=== PATIENT | male | born 1940 | race African-American/Black ===

== ENCOUNTER 2023-01-27 11:35 | Emergency (ER) | payer OTHER ==
[2023-01-27 11:43] VITALS: BP 113/59; PULSE 67; RESP 20; TEMP 97.6; BMI 26.2
[2023-01-27] MEDS ORDERED: diphenhydrAMINE HCL 25 MG CAPSULE (FP) PO ONE ×2 (13:06→13:07)
[2023-01-27] MEDS ORDERED: predniSONE 20 MG TABLET (UD) PO ONE (13:06)
[2023-01-27] MEDS ORDERED: predniSONE 20 MG TABLET (UD) ONE (13:07)
== END 2023-01-27 13:33 | disposition home or self-care (01) ==
LOC: JERFT 11:35
DX: L30.8 Other specified dermatitis (principal)
CPT/HCPCS: 99283-25

== ENCOUNTER 2023-02-13 16:21 | Emergency (ER) | payer OTHER ==
[2023-02-13 16:29] VITALS: BP 109/63; PULSE 63; RESP 16; TEMP 98; BMI 26.4
== END 2023-02-13 18:26 | disposition home or self-care (01) ==
LOC: JERFT 16:21
DX: B37.0 Candidal stomatitis (principal); R21 Rash and other nonspecific skin eruption
CPT/HCPCS: 99283-25